=== PATIENT | male | born 1960 | race African-American/Black ===

== ENCOUNTER 2016-05-15 16:23 | Emergency (ER) | payer SELFPAY ==
[~2016-05-15] VITALS: Ht 180.3 cm; Wt 122.5 kg
[2016-05-15 16:30] VITALS: BP 145/94
[2016-05-15 17:07] VITALS: BP 139/89
--- NOTE | 2016-05-16 13:19 | Emergency Room Report ---
History of Present Illness General Chief Complaint: Overdose Source: EMS Present Illness HPI The pt is a 56 yo M presenting for drug use. The pt states he used PCP today and thinks he may have used too much. The pt states he is feeling fine and denies any pain, N, V, F, chills, headache, dizziness, CP, SOB, abd pain Allergies: Coded Allergies: No Known Allergies (Unverified , 05/15/16) Patient History Past Medical History: see triage record Pertinent Family History: none Reviewed Nursing Documentation: PMH: Agreed, PSxH: Agreed Nursing Documentation-PMH Past Medical History: No Stated History Review of Systems All Other Systems: negative except mentioned in HPI Physical Exam Vital Signs Date Time Temp Pulse Resp B/P Pulse Ox O2 Delivery O2 Flow Rate FiO2 05/15/16 16:25 99.0 130 18 145/94 98 Room Air Sp02 EP Interpretation: reviewed, normal General Appearance: no apparent distress, alert, GCS 15, non-toxic Head: normocephalic, atraumatic Eyes: bilateral eye PERRL, bilateral eye normal inspection ENT: hearing grossly normal, normal pharynx, no angioedema, normal voice Neck: full range of motion, supple/symm/no masses Respiratory: chest non-tender, lungs clear, normal breath sounds, speaking full sentences Cardiovascular #1: regular rate, rhythm, no edema Cardiovascular #2: 2+ carotid (R), 2+ carotid (L), 2+ radial (R), 2+ radial (L) , 2+ dorsalis pedis (R), 2+ dorsalis pedis (L) Gastrointestinal: normal bowel sounds, non tender, soft, non-distended, no guarding, no rebound Rectal: deferred Genitourinary: normal inspection, no CVA tenderness Musculoskeletal: back normal, gait/station normal, normal range of motion, non- tender Neurologic: alert, oriented x3, responsive, motor strength/tone normal, sensory intact, speech normal Psychiatric: judgement/insight normal, memory normal, mood/affect normal, no suicidal/homicidal ideation Suicide Risk Assessment: Suicidal Ideation: No Had intent to initiate attempt: No Pt's plan for suicide attempt: No Reflexes: 3+ bicep (R), 3+ bicep (L), 3+ tricep (R), 3+ tricep (L), 3+ knee (R) , 3+ knee (L) Skin: normal color, no rash, warm/dry, well hydrated Lymphatic: no adenopathy Medical Decision Making PA Attestation Dr. James is my supervising physician. Patient management was discussed with my supervising physician Diagnostic Impression: Primary Impression: Drug abuse ER Course The pt is a 56 yo M presenting for drug use. The pt states he used PCP today and thinks he may have used too much. Differential diagnoses considered but not limited to drug abuse, suicidal ideation, homicidal ideation, depression PE: Vitals show initial tachycardia and hypertension. Vitals are all within normal limits at time of discharge. The patient is alert and oriented x3. No apparent distress. Patient is resting comfortably in a chair. PERRL. RRR. No MRG. Lungs CTA bilat Pt able to ambulate without difficulty. The patient is given time to rest and is discharged home. ER precautions are given the patient is given advice to not use drugs. Last Vital Signs Date Time Temp Pulse Resp B/P Pulse Ox O2 Delivery O2 Flow Rate FiO2 05/15/16 17:07 99.0 89 15 139/89 99 Room Air Status: improved Disposition: HOME, SELF-CARE Condition: Improved Patient Instructions: Substance Use Disorder Additional Instructions: I discussed my findings with the patient. All questions and concerns have been answered. Treatment and medication compliance have been addressed. I advised the patient that they need to follow up with PMD in 3-5 days. Return to ED if symptoms worsen, new symptoms arise, or if needed for any reason. Patient verbalized understanding of discharge instructions. JONO PHILLIP May 16, 2016 13:19
== END 2016-05-15 17:10 | disposition home or self-care (01) ==
LOC: EDBD 16:23 → EMR 16:50
DX: F19.10 Other psychoactive substance abuse, uncomplicated (principal)
CPT/HCPCS: 99283